=== PATIENT | male | born 1985 | race African-American/Black ===

== ENCOUNTER 2017-08-08 15:06 | Emergency (ER) | payer SELFPAY ==
[~2017-08-08] VITALS: Ht 172.7 cm; Wt 66.0 kg
[~2017-08-08 15:06] MED LIST: PHEN-434
[2017-08-08] MEDS ORDERED: ACETAMINOPHEN 325MG TABLET PO ONE (16:30)
[2017-08-08 16:49] LABS: HEMATOCRIT. 51.7 % (42.0-52.0); HEMOGLOBIN. 17.8 g/dL (14.0-18.0); MEAN CORPUSCULAR HEMOGLOBIN 32.9 pg (28.0-32.0); MEAN CORPUSCULAR VOLUME 95.8 fL (80.0-94.0); MEAN PLATELET VOLUME 8.4 fl (7.4-10.4); PLATELET 245 x1000/uL (130-400); RED CELL DISTRIBUTION WIDTH 13.3 % (11.6-14.6)
[2017-08-08 16:52] LABS: CHLORIDE 102 mEq/L (98-107)
[2017-08-08 17:01] LABS: CARBON DIOXIDE 26 mEq/L (21-32)
[2017-08-08 17:23] LABS: PLATELET ESTIMATE NORMAL
[2017-08-08] MEDS ORDERED: PHENYTOIN SODIUM 1,000 MG in SODIUM CHLORIDE 0.9% 100 ML IV ONE (17:30)
[2017-08-08] MEDS ORDERED: PHENYTOIN SODIUM 1000MG in SODIUM CHLORIDE 0.9% 100ML IV NR (18:00)
[2017-08-08 18:30] VITALS: BP 137/81
== END 2017-08-08 19:27 | disposition home or self-care (01) ==
LOC: ER 15:29
DX: R56.9 Unspecified convulsions (principal); R89.2 Abnormal level of other drugs, medicaments and biological substances in specimens from other organs, systems and tissues
CPT/HCPCS: 36415; 80053; 80185; 85025; 96365; 99284; J1165; Z7610; J7050

== ENCOUNTER 2018-02-03 14:13 | Emergency (ER) | payer MEDICAID ==
[~2018-02-03] VITALS: Ht 170.2 cm; Wt 64.0 kg
[2018-02-03] MEDS ORDERED: LORAZEPAM 2MG/ML CPJ ONE (16:23)
[2018-02-03] MEDS ORDERED: LORAZEPAM 2MG/ML CPJ IM PRN (16:30)
[2018-02-03] MEDS ORDERED: PHENYTOIN SODIUM 750 MG in SODIUM CHLORIDE 0.9% 100 ML IV ONE (16:30)
[2018-02-03 17:06] LABS: BASOPHILS % 0.5 % (0.0-2.0); EOSINOPHILS % 0.4 % (0.0-5.0); HEMATOCRIT. 48.1 % (42.0-52.0); HEMOGLOBIN. 16.1 g/dL (14.0-18.0); LYMPHOCYTES % 15.5 % (20.0-50.0); MEAN CORPUSCULAR HEMOGLOBIN 32.8 pg (28.0-32.0); MEAN CORPUSCULAR VOLUME 97.8 fL (80.0-94.0); NEUTROPHILS % 75.6 % (40.0-76.0); PLATELET 243 x1000/uL (130-400); RED BLOOD CELL COUNT 4.91 mill/uL (4.7-6.1); RED CELL DISTRIBUTION WIDTH 13.5 % (11.6-14.6)
[2018-02-03 17:10] LABS: CHLORIDE 106 mEq/L (98-107)
[2018-02-03] MEDS ORDERED: PHENYTOIN SODIUM EXTENDED 100MG CAPSULE PO ONE (19:30)
[2018-02-03 19:45] VITALS: BP 149/88
== END 2018-02-03 20:20 | disposition home or self-care (01) ==
LOC: ER 16:02
DX: G40.409 Other generalized epilepsy and epileptic syndromes, not intractable, without status epilepticus (principal); S00.512A Abrasion of oral cavity, initial encounter; F17.200 Nicotine dependence, unspecified, uncomplicated; F12.10 Cannabis abuse, uncomplicated; Z91.19 Patient's noncompliance with other medical treatment and regimen; X58.XXXA Exposure to other specified factors, initial encounter; Y93.89 Activity, other specified; Y92.018 Other place in single-family (private) house as the place of occurrence of the external cause
CPT/HCPCS: 36415; 80048; 80185; 85025; 96365; 96372; 99291; J1165; J2060; J7050

== ENCOUNTER 2018-04-10 18:38 | Emergency (ER) | payer SELFPAY ==
[~2018-04-10] VITALS: Ht 172.7 cm; Wt 80.0 kg
[2018-04-10] MEDS ORDERED: SODIUM CHLORIDE 0.9% 1,000 ML IV ONE (18:56)
[2018-04-10] MEDS ORDERED: LORAZEPAM 2MG/ML CPJ IV ONE (19:00)
[2018-04-10 19:47] LABS: BASOPHILS % 0.9 % (0.0-2.0); EOSINOPHILS % 1.2 % (0.0-5.0); HEMATOCRIT. 45.5 % (42.0-52.0); LYMPHOCYTES % 33.1 % (20.0-50.0); MEAN CORPUSCULAR HEMOGLOBIN 33.3 pg (28.0-32.0); MEAN CORPUSCULAR VOLUME 95.2 fL (80.0-94.0); MEAN PLATELET VOLUME 8.8 fl (7.4-10.4); MONOCYTES % 9.2 % (2.0-8.0); NEUTROPHILS % 55.6 % (40.0-76.0); PLATELET 268 x1000/uL (130-400); RED BLOOD CELL COUNT 4.78 mill/uL (4.7-6.1); RED CELL DISTRIBUTION WIDTH 13.4 % (11.6-14.6)
[2018-04-10 19:50] LABS: CHLORIDE 98 mEq/L (98-107)
[2018-04-10 19:54] LABS: ETHANOL BLOOD < 10 mg/dL
[2018-04-10] MEDS ORDERED: PHENYTOIN SODIUM 1,000 MG in SODIUM CHLORIDE 0.9% 100 ML IV ONE (20:15)
[2018-04-10 22:20] VITALS: BP 147/77
== END 2018-04-10 22:59 | disposition home or self-care (01) ==
LOC: ER 20:41
DX: R56.9 Unspecified convulsions (principal); R89.2 Abnormal level of other drugs, medicaments and biological substances in specimens from other organs, systems and tissues; F17.200 Nicotine dependence, unspecified, uncomplicated; F12.10 Cannabis abuse, uncomplicated
CPT/HCPCS: 36415; 80053; 80185; 85025; 93005; 96361; 96365; 96375; 99285; G0482; J1165; J2060; J7030; Z7610; J7050

== ENCOUNTER 2018-06-15 14:47 | Emergency (ER) | payer SELFPAY ==
[~2018-06-15] VITALS: Ht 172.7 cm; Wt 70.0 kg
[2018-06-15] MEDS ORDERED: ACETAMINOPHEN WITH CODEINE 300/30MG TABLET PO STA (15:21)
[2018-06-15 15:52] LABS: CHLORIDE 107 mEq/L (98-107)
[2018-06-15 15:54] LABS: HEMATOCRIT. 50.9 % (42.0-52.0); HEMOGLOBIN. 17.3 g/dL (14.0-18.0); MEAN CORPUSCULAR HEMOGLOBIN 32.9 pg (28.0-32.0); MEAN CORPUSCULAR VOLUME 97.1 fL (80.0-94.0); MEAN PLATELET VOLUME 8.6 fl (7.4-10.4); PLATELET 222 x1000/uL (130-400); RED BLOOD CELL COUNT 5.25 mill/uL (4.7-6.1); RED CELL DISTRIBUTION WIDTH 13.5 % (11.6-14.6)
[2018-06-15 15:55] LABS: ETHANOL BLOOD < 10 mg/dL
[2018-06-15 16:44] LABS: PLATELET ESTIMATE NORMAL
[2018-06-15 17:57] LABS: *AMPHETAMINES SCREEN URINE NEGATIVE (NEGATIVE); *BARBITURATES SCREEN URINE NEGATIVE (NEGATIVE); CANNABINOID URINE SCREEN PRESUMTIVE POSITIVE (NEGATIVE); METHADONE URINE SCREEN NEGATIVE (NEGATIVE); OPIATES URINE SCREEN PRESUMTIVE POSITIVE (NEGATIVE); PHENCYCLIDINE URINE SCREEN NEGATIVE (NEGATIVE)
[2018-06-15 17:58] LABS: *BENZODIAZEPINES SCREEN URINE NEGATIVE (NEGATIVE); *COCAINE SCREEN URINE NEGATIVE (NEGATIVE)
[2018-06-15] MEDS ORDERED: KETOROLAC 15MG/ML VIAL IV ONE (18:15)
[2018-06-15] MEDS ORDERED: PHENYTOIN SODIUM 1,000 MG in SODIUM CHLORIDE 0.9% 100 ML IV ONE (18:15)
[2018-06-15 20:46] VITALS: BP 117/67
== END 2018-06-15 21:07 | disposition home or self-care (01) ==
LOC: ER 14:47
DX: G40.909 Epilepsy, unspecified, not intractable, without status epilepticus (principal); R53.1 Weakness; F12.10 Cannabis abuse, uncomplicated
CPT/HCPCS: 36415; 70450; 80053; 80185; 80305; 85025; 96365; 96375; 99285; G0482; J1165; J1885; J7050

== ENCOUNTER 2018-06-23 16:29 | Emergency (ER) | payer SELFPAY ==
[~2018-06-23] VITALS: Ht 170.2 cm; Wt 68.0 kg
[2018-06-23 16:46] VITALS: BP 138/82
[2018-06-23 18:28] LABS: BASOPHILS % 1.3 % (0.0-2.0); EOSINOPHILS % 1.9 % (0.0-5.0); HEMATOCRIT. 46.2 % (42.0-52.0); LYMPHOCYTES % 30.3 % (20.0-50.0); MEAN CORPUSCULAR HEMOGLOBIN 33.3 pg (28.0-32.0); MEAN CORPUSCULAR VOLUME 96.1 fL (80.0-94.0); MONOCYTES % 9.8 % (2.0-8.0); NEUTROPHILS % 56.7 % (40.0-76.0); PLATELET 265 x1000/uL (130-400); RED CELL DISTRIBUTION WIDTH 13.6 % (11.6-14.6)
[2018-06-23 18:31] LABS: CHLORIDE 100 mEq/L (98-107)
[2018-06-23] MEDS ORDERED: PHENYTOIN SODIUM EXTENDED 100MG CAPSULE PO ONE (19:45)
== END 2018-06-23 20:30 | disposition home or self-care (01) ==
LOC: ER 16:46
DX: G40.909 Epilepsy, unspecified, not intractable, without status epilepticus (principal); Z76.0 Encounter for issue of repeat prescription; R03.0 Elevated blood-pressure reading, without diagnosis of hypertension
CPT/HCPCS: 36415; 80048; 80076; 80185; 85025; 99284

== ENCOUNTER 2019-11-04 18:12 | Emergency (ER) | payer SELFPAY ==
[~2019-11-04] VITALS: Ht 175.3 cm; Wt 90.0 kg
[2019-11-04] MEDS ORDERED: SODIUM CHLORIDE 0.9% 1,000 ML IV ONE (20:55)
[2019-11-04] MEDS ORDERED: LEVETIRACETAM 1000MG/100ML 100 ML IV ONE (21:00)
[2019-11-04] MEDS ORDERED: PHENYTOIN SODIUM 1,000 MG in SODIUM CHLORIDE 0.9% 100 ML IV ONE (21:30)
[2019-11-04 21:42] LABS: HEMATOCRIT. 48.5 % (42.0-52.0); HEMOGLOBIN. 16.5 g/dL (14.0-18.0); MEAN CORPUSCULAR HEMOGLOBIN 33.2 pg (28.0-32.0); MEAN CORPUSCULAR VOLUME 97.4 fL (80.0-94.0); PLATELET 249 x1000/uL (130-400); RED BLOOD CELL COUNT 4.97 mill/uL (4.7-6.1); RED CELL DISTRIBUTION WIDTH 14.1 % (11.6-14.6)
[2019-11-04 21:47] LABS: CHLORIDE 108 mEq/L (98-107)
[2019-11-04 21:53] LABS: ETHANOL BLOOD < 10 mg/dL
[2019-11-04 22:30] LABS: PLATELET ESTIMATE NORMAL
[2019-11-05] MEDS ORDERED: ACETAMINOPHEN 650MG/20.3ML UDC PO ONE (00:15)
[2019-11-05 00:25] VITALS: BP 92/46
== END 2019-11-05 00:32 | disposition home or self-care (01) ==
LOC: ER 18:12
DX: R56.9 Unspecified convulsions (principal); Z91.14 Patient's other noncompliance with medication regimen
CPT/HCPCS: 36415; 80053; 80320; 85025; 99283; J1165; J1953; J7030; J7050; Z7610; G0480

== ENCOUNTER 2020-05-12 15:17 | Emergency (ER) | payer MEDICAID ==
[~2020-05-12] VITALS: Ht 175.3 cm; Wt 82.0 kg
[2020-05-12] MEDS ORDERED: SODIUM CHLORIDE 0.9% 1,000 ML IV ONE (15:41)
[2020-05-12] MEDS ORDERED: LEVETIRACETAM 1000MG/100ML 100 ML IV ONE (15:45)
[2020-05-12 15:56] LABS: CHLORIDE 107 mEq/L (98-107)
[2020-05-12 15:59] LABS: ETHANOL BLOOD < 10 mg/dL
[2020-05-12 16:01] LABS: BASOPHILS % 0.6 % (0.0-2.0); EOSINOPHILS % 0.1 % (0.0-5.0); HEMATOCRIT. 45.2 % (42.0-52.0); HEMOGLOBIN. 15.7 g/dL (14.0-18.0); LYMPHOCYTES % 10.1 % (20.0-50.0); MEAN CORPUSCULAR HEMOGLOBIN 34.2 pg (28.0-32.0); MEAN CORPUSCULAR VOLUME 98.4 fL (80.0-94.0); MEAN PLATELET VOLUME 9.2 fl (7.4-10.4); MONOCYTES % 8.7 % (2.0-8.0); NEUTROPHILS % 80.5 % (40.0-76.0); PLATELET 232 x1000/uL (130-400); RED CELL DISTRIBUTION WIDTH 13.8 % (11.6-14.6)
[2020-05-12 16:13] LABS: CLARITY URINE CLEAR (CLEAR); COLOR URINE YELLOW (YELLOW); KETONES URINE 3+ (NEGATIVE); LEUKOCYTE ESTERASE URINE NEGATIVE (NEGATIVE); NITRITE URINE NEGATIVE (NEGATIVE); OCCULT BLOOD URINE NEGATIVE (NEGATIVE); PH URINE 5.5 (4.5-8.0); PROTEIN URINE TRACE (NEGATIVE); SPECIFIC GRAVITY URINE 1.023 (1.005-1.030)
[2020-05-12 16:24] LABS: *AMPHETAMINES SCREEN URINE NEGATIVE (NEGATIVE); *BARBITURATES SCREEN URINE NEGATIVE (NEGATIVE); *BENZODIAZEPINES SCREEN URINE NEGATIVE (NEGATIVE); *COCAINE SCREEN URINE NEGATIVE (NEGATIVE); METHADONE URINE SCREEN NEGATIVE (NEGATIVE); OPIATES URINE SCREEN NEGATIVE (NEGATIVE)
[2020-05-12 16:25] LABS: CANNABINOID URINE SCREEN PRESUMTIVE POSITIVE (NEGATIVE); PHENCYCLIDINE URINE SCREEN NEGATIVE (NEGATIVE)
[2020-05-12] MEDS ORDERED: ACETAMINOPHEN 650MG/20.3ML UDC PO ONE (17:45)
[2020-05-12] MEDS ORDERED: KETOROLAC 30MG/ML VIAL IV ONE (18:30)
[2020-05-12 18:50] VITALS: BP 124/72
== END 2020-05-12 18:51 | disposition home or self-care (01) ==
LOC: ER 15:17
DX: G40.909 Epilepsy, unspecified, not intractable, without status epilepticus (principal); R40.2410 Glasgow coma scale score 13-15, unspecified time
CPT/HCPCS: 36415; 70450; 80053; 80305; 80320; 81003; 85025; 96365; 99284; J1953; J7030; G0480

== ENCOUNTER 2020-05-20 15:33 | Emergency (ER) | payer MEDICAID ==
[~2020-05-20] VITALS: Ht 170.2 cm; Wt 64.0 kg
[2020-05-20 16:24] LABS: BASOPHILS % 0.7 % (0.0-2.0); HEMATOCRIT. 55.1 % (42.0-52.0); HEMOGLOBIN. 19.1 g/dL (14.0-18.0); LYMPHOCYTES % 31.5 % (20.0-50.0); MEAN CORPUSCULAR VOLUME 97.9 fL (80.0-94.0); MEAN PLATELET VOLUME 8.8 fl (7.4-10.4); MONOCYTES % 8.8 % (2.0-8.0); PLATELET 277 x1000/uL (130-400); RED BLOOD CELL COUNT 5.63 mill/uL (4.7-6.1); RED CELL DISTRIBUTION WIDTH 13.4 % (11.6-14.6)
[2020-05-20 16:30] LABS: CHLORIDE 103 mEq/L (98-107)
[2020-05-20 16:35] LABS: ETHANOL BLOOD < 10 mg/dL
[2020-05-20 19:48] VITALS: BP 135/90
== END 2020-05-20 19:51 | disposition home or self-care (01) ==
LOC: ER 15:33
DX: H53.8 Other visual disturbances (principal); F17.200 Nicotine dependence, unspecified, uncomplicated
CPT/HCPCS: 36415; 80053; 80320; 85025; 99285; G0480

== ENCOUNTER 2020-10-05 11:28 | Emergency (ER) | payer MEDICAID ==
[~2020-10-05] VITALS: Ht 172.7 cm; Wt 82.0 kg
[2020-10-05] MEDS ORDERED: LEVETIRACETAM 500MG PREMIX 100 ML IV ONE (13:15)
[2020-10-05] MEDS ORDERED: PHENYTOIN SODIUM EXTENDED 100MG CAPSULE PO ONE (13:15)
[2020-10-05] MEDS ORDERED: LORAZEPAM 2MG/ML CPJ IV ONE ×2 (14:00→14:15)
[2020-10-05] MEDS ORDERED: ZIPRASIDONE MESYLATE 20MG/VIAL IM ONE (14:15)
[2020-10-05 14:54] LABS: BASOPHILS % 0.3 % (0.0-2.0); EOSINOPHILS % 0.3 % (0.0-5.0); HEMATOCRIT. 52.2 % (42.0-52.0); HEMOGLOBIN. 16.9 g/dL (14.0-18.0); MEAN CORPUSCULAR HEMOGLOBIN 33.6 pg (28.0-32.0); MEAN CORPUSCULAR VOLUME 103.7 fL (80.0-94.0); MEAN PLATELET VOLUME 9.6 fl (7.4-10.4); MONOCYTES % 9.7 % (2.0-8.0); NEUTROPHILS % 75.7 % (40.0-76.0); PLATELET 245 x1000/uL (130-400); RED BLOOD CELL COUNT 5.03 mill/uL (4.7-6.1); RED CELL DISTRIBUTION WIDTH 14.4 % (11.6-14.6)
[2020-10-05 15:05] LABS: CHLORIDE 105 mEq/L (98-107)
[2020-10-05 15:10] LABS: ETHANOL BLOOD < 10 mg/dL
[2020-10-05 15:20] LABS: CLARITY URINE CLEAR (CLEAR); COLOR URINE YELLOW (YELLOW); KETONES URINE NEGATIVE (NEGATIVE); LEUKOCYTE ESTERASE URINE NEGATIVE (NEGATIVE); NITRITE URINE NEGATIVE (NEGATIVE); OCCULT BLOOD URINE 1+ (NEGATIVE); PROTEIN URINE TRACE (NEGATIVE); SPECIFIC GRAVITY URINE 1.017 (1.005-1.030); UROBILINOGEN URINE 0.2 E.U./dL (0.2-1.0)
[2020-10-05 15:41] LABS: *AMPHETAMINES SCREEN URINE NEGATIVE (NEGATIVE); *BARBITURATES SCREEN URINE NEGATIVE (NEGATIVE); *BENZODIAZEPINES SCREEN URINE NEGATIVE (NEGATIVE); *COCAINE SCREEN URINE NEGATIVE (NEGATIVE); METHADONE URINE SCREEN NEGATIVE (NEGATIVE); OPIATES URINE SCREEN NEGATIVE (NEGATIVE)
[2020-10-05 15:42] LABS: CANNABINOID URINE SCREEN PRESUMTIVE POSITIVE (NEGATIVE); PHENCYCLIDINE URINE SCREEN NEGATIVE (NEGATIVE)
[2020-10-05 18:34] VITALS: BP 129/70
== END 2020-10-05 18:15 | disposition home or self-care (01) ==
LOC: ER 11:34
DX: G40.909 Epilepsy, unspecified, not intractable, without status epilepticus (principal); Z91.14 Patient's other noncompliance with medication regimen
CPT/HCPCS: 36415; 70450; 80053; 80185; 80305; 80320; 81003; 85025; 93005; 96365; 96372; 96375; 96376; 99285; J1953; J2060; J3486; G0480